=== PATIENT | female | born 1945 | race Caucasian/White ===

== ENCOUNTER 2017-03-03 07:41 | Outpatient (CLI) | payer MEDICARE | END 2017-03-03 07:42 | disposition home or self-care (01) | LOC: BICMAMMO 07:41 | PROVIDERS: ATTEND Family Medicine | DX: Z12.31 Encounter for screening mammogram for malignant neoplasm of breast (principal) | CPT/HCPCS: 77063; G0202; 77067 ==

== ENCOUNTER 2018-01-03 06:58 | Outpatient (CLI) | payer MEDICARE ==
--- NOTE | 2018-01-03 09:19 | ULT ---
RIGHT LOWER EXTREMITY VENOUS DOPPLER ULTRASOUND: Date: 01/03/18 HISTORY: Right lower extremity pain. FINDINGS: Multiple longitudinal and transverse images of the right lower extremity venous system is obtained us ing a multihertz linear array transducer. Real-time, color flow, and spectral waveform Doppler analys is demonstrates no evidence of acute or old clot seen in the right common femoral, superficial femora l vein, femora profunda, popliteal, posterior tibial vein, post-trifurcation veins, and right greater saphenous vein. IMPRESSION: No evidence of right lower extremity deep venous thrombosis. POS: [facility]
== END 2018-01-03 06:59 | disposition home or self-care (01) ==
LOC: BICULT 06:58
PROVIDERS: ATTEND Family Medicine
DX: M79.604 Pain in right leg (principal)

== ENCOUNTER 2018-03-10 08:55 | Outpatient (CLI) | payer MEDICARE ==
--- NOTE | 2018-03-10 10:02 | BD ---
DEXA BONE DENSITY EXAM: History: 72-year-old post-menopausal female for screening. Lumbar Spine: BMD (g/cm2) L1 0.912 T-Score: -0.7 L2 1.003 T-Score: -0.2 L3 0.976 T-Score: -1.0 L4 1.019 T-Score: -0.4 L1-L4 0.980 T-Score: -0.6 Femoral Neck: 0.649 T-Score: -1.8 Total Femur: 0.723 T-Score: -1.7 Impression: Osteopenia. This patient has a 4-5x increase risk for fracture when compared with young patient's wit h normal bone marrow density. POS: [facility]
== END 2018-03-10 08:56 | disposition home or self-care (01) ==
LOC: BICMAMMO 08:55
PROVIDERS: ATTEND Family Medicine
DX: Z12.31 Encounter for screening mammogram for malignant neoplasm of breast (principal); M85.80 Other specified disorders of bone density and structure, unspecified site; M89.9 Disorder of bone, unspecified; M85.859 Other specified disorders of bone density and structure, unspecified thigh; Z80.3 Family history of malignant neoplasm of breast
CPT/HCPCS: 77063; 77067; 77080

== ENCOUNTER 2019-03-12 11:49 | Outpatient (CLI) | payer MEDICARE ==
--- NOTE | 2019-03-12 15:28 | MMO ---
Bilateral MAMMO Bilat Screen [facility]. CLINICAL HISTORY: Patient is 73 years old and is seen for screening. The patient has the following family history of breast cancer: aunt. The patient has no personal history of cancer. VIEWS: The views performed were: bilateral craniocaudal with tomosynthesis and bilateral mediolateral oblique with tomosynthesis. FILMS COMPARED: The present examination has been compared to prior imaging studies performed at [facility] on 02/04/2015, 02/10/2016, 03/03/2017 and 03/10/2018. This study has been interpreted with the assistance of computer-aided detection. MAMMOGRAM FINDINGS: There are scattered fibroglandular densities. There are no suspicious masses, suspicious calcifications, or new areas of architectural distortion. IMPRESSION: THERE IS NO MAMMOGRAPHIC EVIDENCE OF MALIGNANCY. A ROUTINE FOLLOW-UP MAMMOGRAM IN 1 YEAR IS RECOMMENDED. THE RESULTS OF THIS EXAM WERE SENT TO THE PATIENT. ACR BI-RADS Category 1 - Negative MAMMOGRAPHY NOTE: 1. A negative mammogram report should not delay a biopsy if a dominant of clinically suspicious mass is present. 2. Approximately 10% to 15% of breast cancers are not detected by mammography. 3. Adenosis and dense breasts may obscure an underlying neoplasm. Reported by: ROSEMARY BACA MD Electonically Signed: [id number]
== END 2019-03-12 11:50 | disposition home or self-care (01) ==
LOC: BICMAMMO 11:49
PROVIDERS: ATTEND Family Medicine
DX: Z12.31 Encounter for screening mammogram for malignant neoplasm of breast (principal); Z80.3 Family history of malignant neoplasm of breast
CPT/HCPCS: 77063; 77067

== ENCOUNTER 2020-03-17 08:46 | Outpatient (CLI) | payer MEDICARE ==
--- NOTE | 2020-03-17 09:41 | MMO ---
Bilateral MAMMO Bilat Screen [facility]. CLINICAL HISTORY: Patient is 74 years old and is seen for screening. The patient has the following family history of breast cancer: maternal aunt. The patient has no personal history of cancer. VIEWS: The views performed were: bilateral craniocaudal with tomosynthesis and bilateral mediolateral oblique with tomosynthesis. FILMS COMPARED: The present examination has been compared to prior imaging studies performed at [facility] on 02/10/2016, 03/03/2017, 03/10/2018 and 03/12/2019. This study has been interpreted with the assistance of computer-aided detection. MAMMOGRAM FINDINGS: There are scattered fibroglandular densities. There are no suspicious masses, suspicious calcifications, or new areas of architectural distortion. IMPRESSION: THERE IS NO MAMMOGRAPHIC EVIDENCE OF MALIGNANCY. A ROUTINE FOLLOW-UP MAMMOGRAM IN 1 YEAR IS RECOMMENDED. THE RESULTS OF THIS EXAM WERE SENT TO THE PATIENT. ACR BI-RADS Category 1 - Negative MAMMOGRAPHY NOTE: 1. A negative mammogram report should not delay a biopsy if a dominant of clinically suspicious mass is present. 2. Approximately 10% to 15% of breast cancers are not detected by mammography. 3. Adenosis and dense breasts may obscure an underlying neoplasm. Reported by: BRIT GALLO MD Electonically Signed: [id number]
--- NOTE | 2020-03-17 12:04 | BD ---
DEXA BONE MINERAL DENSITY STUDY: HISTORY: Osteoporosis screening. COMPARISON: DEXA scan from 2018. FINDINGS: Lumbar Spine: BMD (g/cm2) L1 0.919 T-Score: -0.6 1.4 L2 1.061 T-Score: 0.3 2.6 L3 0.980 T-Score: -0.9 1.5 L4 1.032 T-Score: -0.3 2.2 L1-L4 1.002 T-Score: -0.4 1.9 Change from the comparison examination is =2.3%. Femoral Neck: 0.660 T-Score: -1.7 0.3 Total Femur: 0.789 T-Score: -1.3 0.4 Change from the comparison is +7.8%, statistically significant. WHO classification: Osteopenia. Ten-Year Fracture Risk: Major osteoporotic fracture: 9.8%. Hip Fracture: 2%. Impression: Osteopenia with elevated fracture risk as above. POS: [facility]
== END 2020-03-17 08:47 | disposition home or self-care (01) ==
LOC: BICMAMMO 08:46
PROVIDERS: ATTEND Family Medicine
DX: Z12.31 Encounter for screening mammogram for malignant neoplasm of breast (principal); M85.859 Other specified disorders of bone density and structure, unspecified thigh; Z80.3 Family history of malignant neoplasm of breast
CPT/HCPCS: 77063; 77067; 77080

== ENCOUNTER 2021-03-24 11:57 | Outpatient (CLI) | payer MEDICARE | END 2021-03-24 11:58 | disposition home or self-care (01) | LOC: BICMAMMO 11:57 | PROVIDERS: ATTEND Family Medicine | DX: Z12.31 Encounter for screening mammogram for malignant neoplasm of breast (principal); Z80.3 Family history of malignant neoplasm of breast | CPT/HCPCS: 77063; 77067 ==